=== PATIENT | female | born 1950 | race African-American/Black ===

== ENCOUNTER 2020-11-17 10:29 | Day surgery (SDC) | payer MEDICARE, OTHER ==
[~2020-11-17] VITALS: Ht 167.6 cm; Wt 102.2 kg
[~2020-11-17 10:29] MED LIST: DICYCLOMINE HCL20 MG PO; MONTELUKAST SOD10 MG PO; OMEPRAZOLE40 MG PO; SYMBICORT 16010.2 GM INH; THEOPHYLLINE400 MG PO; VITAMIN D3125 MC2 PO
[2020-11-17] MEDS ORDERED: PERCOCET 5-3251 EACH PO (16:11)
[2020-11-17] MEDS ORDERED: MIRALAX17 GM PO (16:11)
== END 2020-11-17 17:49 | disposition home or self-care (01) ==
LOC: FSDC 10:29 → FMS 10:29 → FAS 10:29 → FMS 13:00 → EDSTATUS 13:00 → FSDC 17:49 → FAS 17:49
DX: D05.11 Intraductal carcinoma in situ of right breast (principal); K21.9 Gastro-esophageal reflux disease without esophagitis; K58.9 Irritable bowel syndrome, unspecified; Z80.0 Family history of malignant neoplasm of digestive organs; Z79.899 Other long term (current) drug therapy
CPT/HCPCS: 76098; 77065; 78195; 93005; A9541; J0171; J0735; J1100; J1170; J1885; J2250; J2405; J2704; J2710; J3010; J7120; U0002